=== PATIENT | male | born 1960 | race Caucasian/White ===

== ENCOUNTER 2023-11-18 10:39 | Day surgery (SDC) | payer OTHER, SELFPAY ==
[2023-11-18 11:43] VITALS: BMI 36.7
== END 2023-11-18 12:16 | disposition home or self-care (01) ==
LOC: CATH 10:39
PROVIDERS: ATTENDING PHYSICIAN Internal Medicine Cardiovascular Disease; FAMILY PHYSICIAN Family Medicine; OTHER PHYSICIAN Internal Medicine Cardiovascular Disease
DX: I48.91 Unspecified atrial fibrillation (principal); Z53.09 Procedure and treatment not carried out because of other contraindication; I10 Essential (primary) hypertension; Z86.73 Personal history of transient ischemic attack (TIA), and cerebral infarction without residual deficits; Z87.891 Personal history of nicotine dependence; Z79.01 Long term (current) use of anticoagulants; Z79.82 Long term (current) use of aspirin
CPT/HCPCS: 93005

== ENCOUNTER → 2024-02-10 08:16 | Outpatient (REF) | payer OTHER, SELFPAY | LOC: DHCBS HW 08:16 | PROVIDERS: ATTENDING PHYSICIAN Internal Medicine Cardiovascular Disease; FAMILY PHYSICIAN Family Medicine | DX: I63.50 Cerebral infarction due to unspecified occlusion or stenosis of unspecified cerebral artery (principal); I50.21 Acute systolic (congestive) heart failure; I48.3 Typical atrial flutter; I43 Cardiomyopathy in diseases classified elsewhere | CPT/HCPCS: 93306 ==

== ENCOUNTER 2024-10-14 13:12 | Inpatient (IN) | payer OTHER, SELFPAY ==
[2024-10-14 09:09] VITALS: BP 143/75
[2024-10-14 10:36] LABS: % Basophils 0.9 % (0-2); % Eosinophils 3.3 % (0-6); % Immature Granulocytes 0.3 % (0-0.5); % Lymphocytes 20.1 % (20.5-51.1); % Monocytes 10.9 % (1.7-9.3); % Neutrophils 64.5 % (42.2-75.2); Absolute Basophils 0.1 10^3/uL (0-0.2); Absolute Eosinophils 0.2 10^3/uL (0-0.7); Absolute Lymphocytes 1.3 10^3/uL (1.2-3.4); Absolute Monocytes 0.7 10^3/uL (0.1-0.6); Absolute Neutrophils 4.3 10^3/uL (1.4-6.5); Hematocrit 38.8 % (39.0-52.0); Hemoglobin 13.1 g/dL (13.0-18.0); Mean Corp Hgb Conc. 33.8 g/dL (33.0-37.0); Mean Corpuscular Hgb 33.6 pg (27.0-31.0); Mean Corpuscular Volume 99.5 fL (80.0-94.0); Mean Platelet Volume 9.9 fL (7.4-10.4); Nucleated Red Blood Cells % 0 % (-); Platelet Count 193 10^3/uL (130-400); Red Cell Dist. Width 11.9 % (11.5-14.5); White Blood Cell Count 6.6 10^3/uL (4.8-10.8)
[2024-10-14 10:47] LABS: ALT (SGPT) 26 U/L (0-50); AST (SGOT) 34 U/L (17-59); Albumin 3.5 g/dl (3.5-5.0); Alkaline Phosphatase 80 U/L (38-126); Blood Urea Nitrogen 12 mg/dl (9-20); Calcium 8.8 mg/dl (8.4-10.2); Carbon Dioxide 33 mmol/L (22-30); Chloride 98 mmol/L (98-107); Glucose 128 mg/dl (70-99); Potassium 4.1 mmol/L (3.5-5.1); Sodium 137 mmol/L (135-145); Total Bilirubin 0.8 mg/dl (0.2-1.3); eGFR > 60.00
[2024-10-14 11:29] VITALS: BP 138/75; BMI 35.4
[2024-10-14 11:52] LABS: Erythrocyte Sed Rate 41 mm/hour (0-20)
--- NOTE | 2024-10-14 12:46 | ED.GENMED ---
History of Present Illness
General
Chief Complaint: Skin Problem
Source: patient
Exam Limitations: none
Time Seen by Provider: 10/14/24 12:14
Nursing documentation reviewed up to this point in time: agreed with
History of Present Illness
History of Present Illness:
64-year-old male with a past medical history of hypertension, hyperlipidemia, atrial fibrillation on Xarelto, alcohol use who presents to the emergency department for evaluation of draining wound on the right elbow and redness and swelling of the
right arm. Patient reports that he has chronic 'cyst' on his right elbow for years. He says that around [place] time he noticed that it was starting to get red and over the past week has started to open up and drain. He says his arm is swollen
and he is having streaking redness up and down his arm as well as around the right elbow. He has had some subjective chills has not been checking his temperature at home. He does have some pain but he says relatively mild. Came to the ER for
evaluation. He denies any trauma or injury or any other complaints.
Past History
Past History
ED Past Medical History: Arrthythmia (A. fib), CVA (left basal ganglia stroke February 2021) and HTN
ED Past Surgical History: None
Social History
Tobacco: Smoker
Alcohol: None
Drug: None
Personal:
Living: with family
Employment: Employed
Family History
Family History: Other (reviewed and noncontributory)
Review of Systems
Review of Systems
All Other Systems: ROS reviewed and negative except as documented in HPI and ROS
Constitutional: Reports fever and chills
Respiratory: Denies trouble breathing
Cardiac: Denies chest pain
ABD/GI: Denies abdominal pain or vomiting
: Denies flank pain
Musculoskeletal: Reports joint pain (Redness, swelling, draining wound on the right elbow)
Skin: Reports other (Wound on the right elbow)
Neurological: Denies headache
Phy Exam
Physical Exam
Physical Exam:
General: Awake, alert, oriented x3; no acute distress
Head: Normocephalic, atraumatic
Eyes: Conjunctiva normal
Throat: Airway intact, handling secretions
Neck: Trachea midline, supple without meningismus
Lungs: Clear to auscultation bilaterally, no wheezing, rales, rhonchi
Heart: Regular rate and rhythm, no murmurs, gallops, or rubs
Abd: Soft, non distended, nontender
Neuro: No gross deficits
Extremities: Patient has a firm nodule on the right elbow and olecranon region with overlying approximately 3 cm diameter wound with purulent drainage; there is no fluctuance in the area and I was not able to express pus with palpation or bedside
needlestick but rather the wound itself has some purulence overlying; he has erythema streaking proximally up the upper arm as well as some streaking erythema distal to the elbow; he has no redness in the antecubital fossa on the right and he is
able to range his elbow fully with minimal pain; there is no large elbow effusion; he does have some edema in the arm on the upper arm down to the knuckles; he is a good strong distal radial pulse in the right upper extremity
Scores
Heart Failure Risk
Heart Failure Risk Score: Not Applicable
Heart Score for Chest Pain Patients
STEMI patient?: Not applicable
Withdrawal Assessment of Alcohol
Withdrawal Assessment Completed?: Not applicable
Course
Orders/Labs/Results
Orders:
Orders
10/14/24 10:15
CRP [C-Reactive Protein] Urgent
Complete Blood Count/With Diff Urgent
Comprehensive Metabolic Panel Urgent
Erythrocyte Sed Rate Urgent
10/14/24 12:18
CR Elbow - Right Min 3 Views Urgent
Comment:
Reason For Exam: wound/infection
10/14/24 12:33
Blood Culture Urgent
[facility] Source: Blood/Venous
Specimen Description:
10/14/24 12:40
Piperacillin/Tazo 3.375 Gram [Zosyn] 3.375 gram in 50 ml IV NOW
Vancomycin [Vancocin] 2,000 mg 0.9% Sodium Chloride 500 ml [Nss] 500 ml IV NOW
10/14/24 12:42
Wound Culture [Wound/Abscess/Other Culture] Urgent
[facility]LIN Source: Elbow
Specimen Description: Right
10/14/24 12:45
Blood Culture Urgent
[facility] Source: Blood/Venous
Specimen Description:
Abnormal Lab Results
10/14/24
10:15
RBC 3.90 L 10^6/uL
(4.70-6.10)
Hct 38.8 L %
(39.0-52.0)
MCV 99.5 H fL
(80.0-94.0)
MCH 33.6 H pg
(27.0-31.0)
Absolute Monos (auto) 0.7 H 10^3/uL
(0.1-0.6)
Lymphocytes % 20.1 L %
(20.5-51.1)
Monocytes % 10.9 H %
(1.7-9.3)
ESR 41 H mm/hour
(0-20)
Carbon Dioxide 33 H mmol/L
(22-30)
Glucose 128 H mg/dl
(70-99)
C-Reactive Protein 61.40 H mg/L
(0.0-10.00)
10/14/24 10:15
10/14/24 10:15
Vital Signs
Initial and Last Documented VS:
Initial Vital Signs
Temp Pulse Resp BP Pulse Ox
36.4 C 63 16 143/75 99
10/14/24 09:09 10/14/24 09:09 10/14/24 09:09 10/14/24 09:09 10/14/24 09:09
Last Documented Vital Signs
Temp Pulse Resp BP Pulse Ox
36.4 C 54 16 138/75 97
10/14/24 09:09 10/14/24 11:29 10/14/24 12:03 10/14/24 11:29 10/14/24 11:28
MDM/Problems Addressed
Differential Diagnosis Includes:
Wound infection, abscess, osteomyelitis, gout
MDM/Problems Addressed:
64-year-old male presents for evaluation of redness, swelling, drainage from wound on the right elbow as described above. Signs consistent with cellulitis and wound infection. At this point I have low suspicion that he has a septic arthritis with
good range of motion and minimal pain in the joint but rather an overlying superficial infection. It is rather extensive infection and wound is purulent. Labs were sent off including a CBC and a CMP which showed no clinically significant
abnormalities. His inflammatory markers were elevated. Will send off blood cultures as well as wound culture. Will cover with antibiotics. Check x-ray of the elbow. Will admit for continued management of severe cellulitis and wound infection.
Case discussed with hospitalist.
*Radiology
Radiology exam reviewed: preliminary read by ED provider and radiology read reviewed
*Pulse Oximetry
Patient hypoxic: no
*Critical Care Note
Total Time (30-74mins, 75-104mins- exclusive of procedures): Not Applicable
Data Reviewed
Source: patient and records
Patient Management
Discussion with other providers: Hospitalist (Discussed with hospitalist)
Escalation/DeEscalation of care consider admission/obs:
Admission indicated
ED Attending Note
-
Portions of this chart may have been created with voice recognition software.� Occasional wrong word or��sound alike� substitutions may have occurred due to the inherent limitations of voice recognition software.
Discharge Plan
Departure
Patient Disposition: Admit
Date of Disposition: 10/14/24
Time of Disposition: 12:41
Admit to doctor: Theo
Presentation/result/management discussed w/ accepting MD/DO: Hospitalist
Discharge Problem:
Open wound of right elbow, Cellulitis
Prescriptions:
No Action
carvedilol [Coreg] 25 MG tablet
25 mg PO BID 30 Days Qty: 60 0RF
amlodipine 5 mg tablet
5 mg PO DAILY Qty: 90 0RF
atorvastatin 40 MG tablet
40 mg PO DAILY
Xarelto 20 MG tablet
20 mg PO DAILY
Referrals:
NONE,* [Family Provider] -
Interventions
Interventions:
*Risk Screen - Suicide Last Done: 10/14/24 09:12
*General Assessment Last Done: 10/14/24 11:29
*Neglect/Abuse Screening Last Done: 10/14/24 09:12
ED- Fall Risk Assessment Last Done: 10/14/24 11:29
*ED COVID-19 Vaccine History Last Done: 10/14/24 11:29
ED-Skin Assessment Last Done: 10/14/24 11:29
Discharge Date and Time
Print Language: SLOVENIAN
[2024-10-14] MEDS: ZOSYN 50 IV ×2 (12:52→17:03)
--- NOTE | 2024-10-14 13:00 | HPS.HSE ---
Addendum entered and electronically signed by Frank Venegas MD 10/14/24 13:05:
Holding Xarelto in case debridement needed.
Original Note:
Family Physician
-
Family Physician: * NONE
Chief Complaint
-
right elbow wound
History of Present Illness
64-year-old male past medical history of atrial flutter status post ablation on Xarelto, hypertension, obesity, CVA, presenting with right elbow wound with discharge over the past few days. He has some discomfort when he bends his elbow but not
very painful. He had some chills but denies fever. 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 He has had a bump on his right elbow for over 20 years prior to that.
He smokes half a pack of cigarettes per day. Drinks a few beers every few days.
Medical History
Past Medical History
Past Medical History: Reports Other (atrial flutter status post ablation on Xarelto, hypertension, obesity, CVA, )
Past Surgical History: Reports None
Social History
Tobacco: Smoker
Alcohol: Occasional
Drug: None
Family History
Family History: Not pertinent
Allergies / Home Medications
Allergies reflects when Allergies were last updated in [facility].
Home Medications with original date entered in [facility]
Allergy/Medication List:
Allergies
Allergy/AdvReac Type Severity Reaction Status Date / Time
lisinopril Allergy Tongue Verified 11/18/23 11:44
Swelling
Home Medications
carvedilol 25 mg tablet (Coreg) 25 mg PO BID 30 days ##60 02/24/21
amlodipine 5 mg tablet 5 mg PO DAILY #90 tabs 10/15/23
atorvastatin 40 mg tablet 40 mg PO DAILY 11/18/23
rivaroxaban 20 mg tablet (Xarelto) 20 mg PO DAILY 11/18/23
Review of Systems
-
History Source: Patient
A 12 point ROS was completed and negative except as noted: Yes
Constitutional: Reports No Symptoms
EENT: Reports No Symptoms
Respiratory: Reports No Symptoms
Cardiac: Reports No Symptoms
Abdomen/GI: Reports No Symptoms
: Reports No Symptoms
Musculoskeletal: Reports No Symptoms
Skin: Reports See HPI and Other
Neurological: Reports No Symptoms
Endocrine: Reports No Symptoms
Hematologic/Lymphatic: Reports No Symptoms
Psych: Reports No Symptoms
Physical Exam
Vital Signs
Vital Signs
Temp Pulse Resp BP Pulse Ox
97.5 F 54 16 138/75 97
10/14/24 09:09 10/14/24 11:29 10/14/24 12:03 10/14/24 11:29 10/14/24 11:28
Physical Exam
General: Well Developed, Well Nourished and No Apparent Distress
HEENT: NormoCephalic, Moist mucous membranes and Atraumatic
Respiratory: Clear
Cardiac: S1/S2 and Regular Rhythm; No Murmur or Rub
GI: Soft, Non Tender, Non Distended and Normal Bowel Sounds; No Organomegaly
Rectal: Deferred by Provider
Musculoskeletal: No Clubbing, No Cyanosis and No Edema
Skin: Other (On examination there is a firm nodule in the right cranial region with approximately 3 cm wound with purulent drainage no fluctuance and unable to be expressed with erythema streaking proximally left upper arm); No Rash
Neuro: Nonfocal/grossly intact
Laboratory Results
-
10/14/24 10:15
10/14/24 10:15
Laboratory Results
Total Bilirubin 0.8 mg/dl (0.2-1.3) 10/14/24 10:15
AST 34 U/L (17-59) 10/14/24 10:15
ALT 26 U/L (0-50) 10/14/24 10:15
Alkaline Phosphatase 80 U/L (38-126) 10/14/24 10:15
Data Reviewed
-
Lab Data: Labs Reviewed by me
Old Records: Reviewed
Impression/Plan
-
IMPRESSION:
PLAN:
# Right elbow infected open wound with surrounding cellulitis
-On examination there is a firm nodule in the right cranial region with approximately 3 cm wound with purulent drainage no fluctuance and unable to be expressed with erythema streaking proximally left upper arm
-He has good range of motion
-Wound culture, blood cultures sent
-Elbow x-ray pending
-Vancomycin/Zosyn
-Wound care consulted
Atrial flutter status post ablation
-Continue Xarelto
-Continue Coreg
Essential hypertension
-Continue amlodipine
History of CVA
-Continue statin
Obesity
Smoker
Full code
DVT prophylaxis�Xarelto
Regular diet
[2024-10-14] MEDS: VANCOCIN 540 MG IV (13:49)
--- NOTE | 2024-10-14 15:10 | PHA.VAN.IN ---
Assessment
- Assessment
Renal Function: Appears similar to baseline
Renal Function may be Overestimated due to: bmi=35.4
Concomitant Antimicrobials: zosyn
AUC Dosing Plan
- Dosing Variables
Dosing Weight (kg): 115
Dosing CrCl (ml/min): 100
Vd coefficient (L/kg): 0.6
- Empiric Dosing
Initial / Loading Dose: 2000mg
Maintenance Regimen: 1500mg q12h
Estimated AUC (mcg*h/mL): 530
Estimated Peak (mcg*h/mL): 33.5
Estimated Trough (mcg/ml): 13.4
Estimated Half Life (H): 7.9
- Monitoring
No levels ordered at this time: consider at steady state
Pharmacokinetics Vancomycin I
- -
Patient Age: 64
Patient Sex: Male
Vancomycin Day #: 1
Indication: Skin And Soft Tissue
Requesting Provider: Dr. Venegas
Height / Weight:
Height 5 ft 11 in
Actual Weight 115 kg
IBW in k.3
- Vital Signs / Lab Results
Temp Pulse Resp BP Pulse Ox
97.5 F 54 16 138/75 97
10/14/24 09:09 10/14/24 11:29 10/14/24 14:00 10/14/24 11:29 10/14/24 11:28
Lab Results - Hematology
10/14/24
10:15
WBC 6.6
Lab Results - Chemistry
10/14/24
10:15
BUN 12
Creatinine 0.7
Albumin 3.5
[2024-10-14 15:30] VITALS: BP 171/110
[2024-10-14 16:13] VITALS: BMI 34.9
[2024-10-14 16:36] VITALS: BMI 34.9
[2024-10-14] MEDS: COREG 25 MG PO (20:27)
[2024-10-14] MEDS: TYLENOL 650 MG PO (20:29)
[2024-10-14 23:05] VITALS: BP 154/88
[2024-10-15] MEDS: ZOSYN 50 IV ×5 (00:02→23:09)
[2024-10-15 06:01] LABS: % Basophils 1.1 % (0-2); % Eosinophils 3.7 % (0-6); % Immature Granulocytes 0.2 % (0-0.5); % Lymphocytes 25.8 % (20.5-51.1); % Monocytes 12.1 % (1.7-9.3); % Neutrophils 57.1 % (42.2-75.2); Absolute Basophils 0.1 10^3/uL (0-0.2); Absolute Eosinophils 0.2 10^3/uL (0-0.7); Absolute Lymphocytes 1.4 10^3/uL (1.2-3.4); Absolute Monocytes 0.7 10^3/uL (0.1-0.6); Absolute Neutrophils 3.1 10^3/uL (1.4-6.5); Hemoglobin 12.7 g/dL (13.0-18.0); Mean Corp Hgb Conc. 34.3 g/dL (33.0-37.0); Mean Corpuscular Hgb 33.9 pg (27.0-31.0); Mean Corpuscular Volume 98.7 fL (80.0-94.0); Mean Platelet Volume 9.8 fL (7.4-10.4); Nucleated Red Blood Cells % 0 % (-); Platelet Count 186 10^3/uL (130-400); Red Blood Cell Count 3.75 10^6/uL (4.70-6.10); Red Cell Dist. Width 11.9 % (11.5-14.5); White Blood Cell Count 5.4 10^3/uL (4.8-10.8)
[2024-10-15 06:22] LABS: ALT (SGPT) 26 U/L (0-50); AST (SGOT) 31 U/L (17-59); Albumin 3.3 g/dl (3.5-5.0); Alkaline Phosphatase 89 U/L (38-126); Blood Urea Nitrogen 9 mg/dl (9-20); Calcium 8.7 mg/dl (8.4-10.2); Carbon Dioxide 29 mmol/L (22-30); Chloride 99 mmol/L (98-107); Estimated Creatinine Clearance > 125 ml/min; Glucose 88 mg/dl (70-99); Sodium 137 mmol/L (135-145); Total Bilirubin 0.8 mg/dl (0.2-1.3); Total Protein 6.8 g/dl (6.3-8.2); eGFR > 60.00
[2024-10-15] MEDS: VANCOCIN 530 MG IV ×2 (06:30→18:51)
[2024-10-15 07:00] VITALS: BP 158/83
[2024-10-15] MEDS: LIPITOR 40 MG PO (08:22)
[2024-10-15] MEDS: COREG 25 MG PO ×2 (08:22→20:17)
[2024-10-15] MEDS: NORVASC 5 MG PO (08:22)
[2024-10-15] MEDS: TYLENOL 650 MG PO (08:23)
--- NOTE | 2024-10-15 08:44 | PHA.VAN.FU ---
Vancomycin Assessment / Plan
- Assessment
Renal Function: Stable
WBC's are: WNL
In the past 24 hrs, patient has been: Afebrile
Concomitant Antimicrobials: ZOSYN
- Dosing Plan
Continue: 1500MG Q12H
- Monitoring Plan
Peak Level: 10/16 @2100
Trough Level: 10/17 @0530
- Follow Up
Pharmacy will continue to follow.
Vancomycin Follow UP
- -
Patient Age: 64
Patient Sex: Male
Vancomycin Day #: 2
Indication: Skin And Soft Tissue
Requesting Provider: Dr. Venegas
Height / Weight:
Height 5 ft 11 in
Actual Weight 113.398 kg
IBW in k.3
- Vital Signs / Lab Results
Temp Pulse Resp BP Pulse Ox
98.1 F 67 16 154/88 96
10/14/24 23:05 10/14/24 23:05 10/14/24 23:05 10/14/24 23:05 10/14/24 23:05
Lab Results - Hematology
10/14/24 10/15/24
10:15 04:17
WBC 6.6 5.4
Lab Results - Chemistry
10/14/24 10/15/24
10:15 04:17
BUN 12 9
Creatinine 0.7 0.7
Estimated Creat Clear > 125
Albumin 3.5 3.3 L
--- NOTE | 2024-10-15 13:25 | W.PN.HOSP.TC ---
Today's Communication/Plan
-
see bold
Assessment / Plan
Assessment / Plan
Gen: NAD, AAOx3.
Eyes: EOMI, PERRLA, no scleral icterus.
Neck: supple.
CV: RRR, +S1/S2, no m/r/g.
Resp: CTAB, no rales, wheezes, or rhonchi.
Abd: +BS, soft, NT, ND
Skin: No rashes. C/D/I dressing R elbow
Neuro: CN 2-12 intact, non-focal.
Psych: Normal mood and affect.
10/14/24 12:38 Blood/Venous Blood Culture - Preliminary
No Growth in 24 hours- Final report to follow
10/14/24 12:33 Blood/Venous Blood Culture - Preliminary
No Growth in 24 hours- Final report to follow
R elbow Xray: No acute osseous abnormality. There is an olecranon spur with associated olecranon bursitis. There is mild soft tissue swelling along the posterior soft tissues adjacent to the distal humerus.
Right elbow infected open wound with surrounding cellulitis:
-cont IV Vanco/Zosyn
-follow BCxs/WCx
-c/s ortho
Atrial flutter s/p ablation:
-Xarelto on hold for possible I&D
-Continue Coreg
Essential hypertension
-Continue amlodipine
History of CVA
-Continue statin
-Xarelto on hold for possible I&D
Obesity due to excess calories
Tobacco abuse disorder
FULL/Lovenox
Anticipated Discharge: 24 - 48 hours
Subjective/Interval History
-
Date of Service: October 15, 2024
No new complaints.
Objective Data
-
Labs:
Laboratory Results
10/15/24
04:17
WBC 5.4
Hgb 12.7 L
Hct 37.0 L
Plt Count 186
Sodium 137
Potassium 4.0
Chloride 99
Carbon Dioxide 29
BUN 9
Creatinine 0.7
Glucose 88
Calcium 8.7
Total Bilirubin 0.8
AST 31
ALT 26
Alkaline Phosphatase 89
Vital Signs:
Vital Signs
Temp Pulse Resp BP Pulse Ox
98.3 F 62 20 158/83 96
10/15/24 07:00 10/15/24 07:00 10/15/24 07:00 10/15/24 07:00 10/15/24 07:00
I&O
10/14/24 10/15/24 10/16/24
06:59 06:59 06:59
Intake Total 480 / 480
Balance 480 / 480
[2024-10-15 15:00] VITALS: BP 173/100
--- NOTE | 2024-10-15 16:07 | W.PN.UPDATE ---
Update Note
Progress Note Update
Full orthopedic consult dictated:
Dx: Right elbow septic olecranon bursitis
Plan: Patient unfortunately is experiencing septic olecranon bursitis right elbow which is going to require irrigation and debridement with possible wound VAC placement tomorrow. Continue with IV antibiotics and local wound care. N.p.o. after
midnight.
[2024-10-15] MEDS: LOVENOX 40 MG SC (17:49)
[2024-10-15 23:02] VITALS: BP 145/77
[2024-10-16] VITALS (8 sets, daily range): BP systolic 130–168; BP diastolic 71–87
--- NOTE | 2024-10-16 05:42 | PTCARENOTE ---
Pt washed at sink, linens and gown changed. 1st set of CHG cloths used.
[2024-10-16] MEDS: ZOSYN 50 IV (05:43)
[2024-10-16] MEDS: VANCOCIN 530 MG IV (06:30)
[2024-10-16] MEDS: COREG PO (08:40)
[2024-10-16 09:33] LABS: % Basophils 0.7 % (0-2); % Immature Granulocytes 0.3 % (0-0.5); % Monocytes 10.2 % (1.7-9.3); % Neutrophils 62.8 % (42.2-75.2); Absolute Eosinophils 0.2 10^3/uL (0-0.7); Absolute Lymphocytes 1.4 10^3/uL (1.2-3.4); Absolute Monocytes 0.6 10^3/uL (0.1-0.6); Absolute Neutrophils 3.8 10^3/uL (1.4-6.5); Hematocrit 37.2 % (39.0-52.0); Hemoglobin 12.9 g/dL (13.0-18.0); Mean Corp Hgb Conc. 34.7 g/dL (33.0-37.0); Mean Corpuscular Hgb 34.1 pg (27.0-31.0); Mean Corpuscular Volume 98.4 fL (80.0-94.0); Mean Platelet Volume 9.3 fL (7.4-10.4); Nucleated Red Blood Cells % 0 % (-); Platelet Count 186 10^3/uL (130-400); Red Blood Cell Count 3.78 10^6/uL (4.70-6.10); Red Cell Dist. Width 11.8 % (11.5-14.5); White Blood Cell Count 6.1 10^3/uL (4.8-10.8)
--- NOTE | 2024-10-16 09:51 | W.PN.UPDATE ---
Update Note
Progress Note Update
Patient resting comfortably this morning. Right elbow is dressed. Plan for the OR as Dr. Douglas's availability permits a bit later today for an I&D of the right elbow with possible wound VAC placement. Patient to remain NPO.
[2024-10-16 10:16] LABS: Blood Urea Nitrogen 12 mg/dl (9-20); Calcium 8.7 mg/dl (8.4-10.2); Carbon Dioxide 29 mmol/L (22-30); Chloride 100 mmol/L (98-107); Estimated Creatinine Clearance 123 ml/min; Glucose 101 mg/dl (70-99); Potassium 4.1 mmol/L (3.5-5.1); Sodium 136 mmol/L (135-145); eGFR > 60.00
--- NOTE | 2024-10-16 10:46 | CON.ID ---
Consultation
-
Date/Time Consultation Requested: October 16, 2024 0849
Date/Time Consultation Performed: October 16, 2024 1050
Requesting Provider: Dr. Jarrett Samuel
Performing Provider: Dr. Isi Maldonado
Reason for Consultation: olecranon septic bursitis
Chief Complaint / Past History
Chief Complaint
Right elbow draining wound
History of Present Illness
64-year-old male with history of CVA, hypertension, a flutter who presented to the hospital on October 04 due to right elbow wound. Patient reports he always has a lump the size of a golf ball over his right elbow for many years. He also has a
similar lump on his left pinky finger for many years. History of gout of the ankle 10 years ago. Last week he noted that the lump over the right elbow opened up with white chalky discharge followed by bloody drainage. The elbow became swollen red
and painful. No fevers or chills. In the ER drainage was swabbed and sent for culture. He was started on vancomycin and Zosyn. He reports he may have banged his elbow but he is not sure. 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 Ortho is planning to take
him to the OR later today for debridement.
Past History
Additional Past Medical History:
Hypertension
CVA
A flutter status post ablation
Allergy History:
lisinopril Allergy (Verified 11/18/23 11:44)
Tongue Swelling
Medications Reviewed: Yes
Current Antibiotics:
Zosyn d3
Vancomycin d3
Social History
Tobacco: Smoker (1/2 pack daily)
Alcohol: Daily (beers)
Family History
Family History: Not Pertinent
Review of Systems
Review of Systems
General: Negative Fever, Chills or Change in Appetite
HEENT: Negative Sinus Problems or Headache
Cardiovascular: Negative Chest Pain or Dyspnea
Respiratory: Negative Dyspnea or Cough
Gasteroenterology: Negative Nausea, Vomiting or Diarrhea
Genital / Urological: Negative Dysuria
Endocrine: Negative Weakness or Fatigue
Skin / Hair / Nails: Negative Rash
Neurological: Negative Dizziness
All systems: All other systems were reviewed and were negative
Vital Signs
Temp Pulse Resp BP Pulse Ox
98.3 F 58 19 151/78 95
10/16/24 07:00 10/16/24 07:00 10/16/24 07:00 10/16/24 07:00 10/16/24 07:00
Physical Exam
Physical Exam
Constitutional: No Acute Distress, Comfortable and Obese
Eyes: No Conjunctival Hemorrhage and Sclera Anicteric
Cardiovascular: Regular Rate and S1/S2
Pulmonary: Clear
Gastrointestinal: Soft, Non Tender, Non Distended and Normal Bowel Sounds
Genito-Urinary: Negative CVA Tenderness
Extremities: Negative Edema
Musculoskeletal: Other (Right olecranon: wound + white substance and light thick yellow drainage, + edema, erythema. ROM intact. Left 5th finger PIP gouty induration)
Neurological: AO x 3
Lab / Diagnostic Study Results
10/16/24 09:05
10/16/24 09:05
Abs Immat Gran (auto) 0.0 10^3/uL (0-0.05) 10/16/24 09:05
Absolute Neuts (auto) 3.8 10^3/uL (1.4-6.5) 10/16/24 09:05
Absolute Lymphs (auto) 1.4 10^3/uL (1.2-3.4) 10/16/24 09:05
Absolute Monos (auto) 0.6 10^3/uL (0.1-0.6) 10/16/24 09:05
Absolute Basos (auto) 0.0 10^3/uL (0-0.2) 10/16/24 09:05
Immature Gran % 0.3 % (0-0.5) 10/16/24 09:05
Neutrophils % 62.8 % (42.2-75.2) 10/16/24 09:05
Lymphocytes % 23.0 % (20.5-51.1) 10/16/24 09:05
Monocytes % 10.2 % (1.7-9.3) H 10/16/24 09:05
Eosinophils % 3.0 % (0-6) 10/16/24 09:05
Basophils % 0.7 % (0-2) 10/16/24 09:05
ESR 41 mm/hour (0-20) H 10/14/24 10:15
C-Reactive Protein 61.40 mg/L (0.0-10.00) H 10/14/24 10:15
Microbiology Results
Micro:
10/14/24 20:47 Wound Culture - Pending
Elbow - Right Gram Stain - Preliminary
10/14/24 12:38 Blood Culture - Preliminary
Blood/Venous No Growth in 24 hours- Final report to follow
10/14/24 12:33 Blood Culture - Preliminary
Blood/Venous No Growth in 24 hours- Final report to follow
10/14/24 Elbow XRAY: No acute osseous abnormality. There is an olecranon spur with associated olecranon bursitis. There is mild soft tissue swelling along the posterior soft tissues adjacent to the distal humerus.
Assessment / Plan
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
# Suspect superimposed right olecranon and bursa infection
- Check serum uric acid
- To OR today for I+D. Please send crystals and cultures.
- Narrow Vanco/Zosyn to cefazolinb for now.
[2024-10-16 11:34] LABS: Uric Acid 3.4 mg/dl (3.5-8.5)
--- NOTE | 2024-10-16 13:10 | WOUNDNOTE ---
WO RN note: Patient admitted with infected R elbow, septic bursitis. Orthopedic surgeon managing. Plan is OR I+D today.
See H&P for complete history.
PMH: a flutter (Xarelto), HTN, obesity, CVA, smoker, drinks a few beers every few days.
Wound Location and type/assessment: Patient admitted with: full thickness R elbow wound with white tissue (gout?) and surround erythema. Moderate nichols drainage.
Appetite: NPO for procedure.
Pressure redistribution devices in place: [employer] Accumax. Patient mobile.
Plan: R elbow dressing changed. RUE elevated on pillow.
Orthopedic surgeon managing wound. ID following. Will follow peripherally as needed.
Note to case management requested for discharge: VN if needed.
Patient to follow up with orthopedic surgeon.
--- NOTE | 2024-10-16 13:21 | W.PN.HOSP.TC ---
Today's Communication/Plan
-
OR today
IV abx narrowed to cefazolin
Xarelto held-pt understands need to hold DOAC in setting of surgery
post op orders per ortho
Assessment / Plan
Assessment / Plan
Gen: NAD, AAOx3.
Eyes: EOMI, PERRLA, no scleral icterus.
Neck: supple.
CV: RRR, +S1/S2, no m/r/g.
Resp: CTAB, no rales, wheezes, or rhonchi.
Abd: +BS, soft, NT, ND
Skin: No rashes. C/D/I dressing R elbow
Neuro: CN 2-12 intact, non-focal.
Psych: Normal mood and affect.
MSR-R hand swelling. R forearm swelling.
10/14/24 12:38 Blood/Venous Blood Culture - Preliminary
No Growth in 24 hours- Final report to follow
10/14/24 12:33 Blood/Venous Blood Culture - Preliminary
No Growth in 24 hours- Final report to follow
R elbow Xray: No acute osseous abnormality. There is an olecranon spur with associated olecranon bursitis. There is mild soft tissue swelling along the posterior soft tissues adjacent to the distal humerus.
Right elbow infected open wound with surrounding cellulitis:
-s/p IV Vanco/Zosyn and now on cefazolin
-follow BCxs. Await Cultures from OR.
-Plan for OR today
-ID c/s
Atrial flutter s/p ablation:
-Xarelto on hold for possible I&D
-Continue Coreg
Essential hypertension
-Continue amlodipine
History of CVA
-Continue statin
-Xarelto on hold for possible I&D
Obesity due to excess calories
Tobacco abuse disorder
FULL/Lovenox
Anticipated Discharge: > 48 hours
Subjective/Interval History
-
Date of Service: October 16, 2024
resting in bed
states of R hand swelling
Objective Data
-
Labs:
Laboratory Results
10/16/24
09:05
WBC 6.1
Hgb 12.9 L
Hct 37.2 L
Plt Count 186
Sodium 136
Potassium 4.1
Chloride 100
Carbon Dioxide 29
BUN 12
Creatinine 0.8
Glucose 101 H
Calcium 8.7
Vital Signs:
Vital Signs
Temp Pulse Resp BP Pulse Ox
98.3 F 58 19 151/78 95
10/16/24 07:00 10/16/24 07:00 10/16/24 07:00 10/16/24 07:00 10/16/24 07:00
I&O
10/15/24 10/16/24 10/17/24
06:59 06:59 06:59
Intake Total 480 / 480 50 / 50
Balance 480 / 480 50 / 50
Data Reviewed
-
Total Time Spent with Patient (in minutes): 55
--- NOTE | 2024-10-16 16:06 | CM ---
account services manager reviewed patient's chart and met with patient and patient lives with his brother in law in a multilevel home, patient is independent with adl's and ambulation no dme, no dme.
PCP: [facility]
Pharmacy: [facility]
Plan; Home when stable, will wait for possible wound vac placement.
[2024-10-16] MEDS: ANCEF 10 IV ×2 (16:08→23:14)
[2024-10-16] MEDS: FLUSH (NSS) 1 FLUSH IV (16:09)
[2024-10-16] MEDS: LIPITOR PO (19:10)
[2024-10-16] MEDS: NORVASC PO (19:10)
[2024-10-16] MEDS: LOVENOX SC (19:10)
[2024-10-16] MEDS: COREG 25 MG PO (21:08)
--- NOTE | 2024-10-16 21:15 | PTCARENOTE ---
Pt received from PACU in bed. AAOx3, pleasant, denies pain. Full physical assessment completed (refer to worklist). NV check WNL. RUE immobilized in sling. Tolerated dinner. OOB to BR to void. LAC leaking, removed. Offers no complaints at
present. Call demond w/in reach.
[2024-10-17 03:04] VITALS: BP 122/71
[2024-10-17] MEDS: ANCEF 10 IV (05:44)
--- NOTE | 2024-10-17 06:37 | W.PN.ORTHO ---
Today's Communication / Plan
-
64-year-old male POD #1 I&D Right Olecranon Bursa 10/16/[address] Douglas.
- WBAT RUE. Sling intact.
- Encourage ROM of wrist and hand. Ice and elevation for edema control.
- Intra-operative cultures pending. Continue to follow.
- Currently on Cefazolin per ID.
- Pain control per primary team.
- Orthopedic surgery will continue to follow.
Assessment
.
Distal Motor Intact: Yes
Dressing:
Clean, dry and intact. Sling in place.
Digital ROM intact. Elbow ROM Deferred.
Capillary refill is less than 2 seconds. NVI distally.
Assessment:
POD #1 I&D Right Olecranon Bursa.
Plan
.
Surgery / Date: I&D Right Olecranon Bursa 10/16/2024 St[facility]
DVT Prophylaxis: Lovenox (Per Primary Team. )
Activity:
Out of bed.
PT/OT
Discharge Information:
Appreciate CM.
Subjective
.
.:
Patient resting comfortably in bed. Denies any new complaints or concerns. Denies any left elbow pain at present. Denies any paresthesias.
Vital Signs and Labs
.
Vital Signs and Labs:
Temp Pulse Resp BP Pulse Ox
97.7 F 56 16 122/71 96
10/17/24 03:04 10/17/24 03:04 10/17/24 03:04 10/17/24 03:04 10/17/24 03:04
[2024-10-17 07:43] VITALS: BP 139/73
[2024-10-17] MEDS: LIPITOR PO ×2 (08:53→09:46)
[2024-10-17] MEDS: NORVASC 5 MG PO (08:53)
[2024-10-17] MEDS: COREG 25 MG PO ×2 (08:54→21:23)
[2024-10-17 10:50] LABS: % Basophils 0.1 % (0-2); % Immature Granulocytes 0.2 % (0-0.5); % Lymphocytes 10.3 % (20.5-51.1); % Monocytes 3.5 % (1.7-9.3); % Neutrophils 85.9 % (42.2-75.2); Absolute Lymphocytes 0.9 10^3/uL (1.2-3.4); Absolute Monocytes 0.3 10^3/uL (0.1-0.6); Absolute Neutrophils 7.4 10^3/uL (1.4-6.5); Hemoglobin 13.3 g/dL (13.0-18.0); Mean Corp Hgb Conc. 34.1 g/dL (33.0-37.0); Mean Corpuscular Hgb 33.5 pg (27.0-31.0); Mean Corpuscular Volume 98.2 fL (80.0-94.0); Mean Platelet Volume 9.7 fL (7.4-10.4); Nucleated Red Blood Cells % 0 % (-); Platelet Count 225 10^3/uL (130-400); Red Blood Cell Count 3.97 10^6/uL (4.70-6.10); Red Cell Dist. Width 11.8 % (11.5-14.5); White Blood Cell Count 8.6 10^3/uL (4.8-10.8)
[2024-10-17 10:56] LABS: Blood Urea Nitrogen 16 mg/dl (9-20); Calcium 8.7 mg/dl (8.4-10.2); Carbon Dioxide 30 mmol/L (22-30); Chloride 96 mmol/L (98-107); Estimated Creatinine Clearance 123 ml/min; Glucose 232 mg/dl (70-99); Potassium 4.4 mmol/L (3.5-5.1); Sodium 134 mmol/L (135-145); eGFR > 60.00
[2024-10-17 11:17] VITALS: BP 137/73
--- NOTE | 2024-10-17 11:24 | W.PN.ID1 ---
Date of Service
Date of Service: October 17, 2024
Today's Communication
Continue abx.
Assessment / Plan
# Right olecranon septic bursitis
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
- wound swab + Group A strep
- 10/16 s/p OR I+D. Cx pending
- Change cefazolin to ceftriaxone.
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
Hypertension
CVA
A-flutter status post ablation
Remote hx of gout
Chief Complaint
-: Other (septic bursitis)
Subjective / Review of Systems
No significant post-op pain
Vital Signs / Physical Exam
Vital Signs
Vital Signs
Temp Pulse Resp BP Pulse Ox
97.7 F 56 18 137/73 95
10/17/24 11:17 10/17/24 11:17 10/17/24 11:17 10/17/24 11:17 10/17/24 11:17
Physical Exam
Constitutional: No Acute Distress and Comfortable
Cardiovascular: Regular Rate and S1/S2
Pulmonary: Clear
Gastrointestinal: Non Tender and Non Distended
Wound: Other (right elbow dressing in place)
Neurological: AO x 3
Objective Data
Lab Data
Lab Results
10/17/24 09:34
10/17/24 09:34
ESR 41 mm/hour (0-20) H 10/14/24 10:15
Estimated Creat Clear 123 ml/min 10/17/24 09:34
Total Bilirubin 0.8 mg/dl (0.2-1.3) 10/15/24 04:17
AST 31 U/L (17-59) 10/15/24 04:17
ALT 26 U/L (0-50) 10/15/24 04:17
Alkaline Phosphatase 89 U/L (38-126) 10/15/24 04:17
C-Reactive Protein 61.40 mg/L (0.0-10.00) H 10/14/24 10:15
Most recent labs reviewed.
Micro Results:
10/16/24 19:12 Anaerobic Culture - Preliminary
Bursa Culture pending. Anaerobic cultures are examined after 3
days incubation. Additional information to follow.
10/16/24 19:12 Tissue Culture - Preliminary
Bursa No Growth After 18-24 Hours
Gram Stain - Preliminary
10/14/24 20:47 Wound Culture - Preliminary
Elbow - Right Streptococcus pyogenes
Gram Stain - Preliminary
10/14/24 12:38 Blood Culture - Preliminary
Blood/Venous No Growth in 48 hours- Final report to follow
10/14/24 12:33 Blood Culture - Preliminary
Blood/Venous No Growth in 48 hours- Final report to follow
10/14/24 Elbow XRAY: No acute osseous abnormality. There is an olecranon spur with associated olecranon bursitis. There is mild soft tissue swelling along the posterior soft tissues adjacent to the distal humerus.
[2024-10-17] MEDS: ROCEPHIN 2000 MG IV (12:17)
[2024-10-17] MEDS: STERILE WATER FOR INJECTION 20 ML IV (12:22)
--- NOTE | 2024-10-17 13:01 | W.PN.HOSP.TC ---
Today's Communication/Plan
-
await OR culture
restart xarelto
IV abx per ID
oob
Assessment / Plan
Assessment / Plan
Gen: NAD, AAOx3.
Eyes: EOMI, PERRLA, no scleral icterus.
Neck: supple.
CV: RRR, +S1/S2, no m/r/g.
Resp: CTAB, no rales, wheezes, or rhonchi.
Abd: +BS, soft, NT, ND
Skin: No rashes. C/D/I dressing R elbow
Neuro: CN 2-12 intact, non-focal.
Psych: Normal mood and affect.
MSR-R hand swelling. R forearm swelling.
10/14/24 12:38 Blood/Venous Blood Culture - Preliminary
No Growth in 24 hours- Final report to follow
10/14/24 12:33 Blood/Venous Blood Culture - Preliminary
No Growth in 24 hours- Final report to follow
R elbow Xray: No acute osseous abnormality. There is an olecranon spur with associated olecranon bursitis. There is mild soft tissue swelling along the posterior soft tissues adjacent to the distal humerus.
Right elbow infected open wound with surrounding cellulitis:
-s/p IV Vanco/Zosyn and now on cefazolin. Switched to rocephin now
-follow BCxs. Await Cultures from OR.
-s/p I&D Right Olecranon Bursa 10/16/[address] Douglas.
-Encourage range of motion of the wrist and hand. Ice and elevation which patient has been doing.
-ID following
Atrial flutter s/p ablation:
-Xarelto restarted. cleared by Dr. Douglas.
-Continue Coreg
Essential hypertension
-Continue amlodipine
History of CVA
-Continue statin
-Xarelto on hold for possible I&D
Obesity due to excess calories
Tobacco abuse disorder
FULL/xarelto
Anticipated Discharge: > 48 hours
Subjective/Interval History
-
Date of Service: October 17, 2024
states R hand swelling improved
remains in sling RUE
tolerating diet
having bm
Objective Data
-
Labs:
Laboratory Results
10/17/24
09:34
WBC 8.6
Hgb 13.3
Hct 39.0
Plt Count 225 D
Sodium 134 L
Potassium 4.4
Chloride 96 L
Carbon Dioxide 30
BUN 16
Creatinine 0.8
Glucose 232 H
Calcium 8.7
Vital Signs:
Vital Signs
Temp Pulse Resp BP Pulse Ox
97.7 F 56 18 137/73 95
10/17/24 11:17 10/17/24 11:17 10/17/24 11:17 10/17/24 11:17 10/17/24 11:17
I&O
10/16/24 10/17/24 10/18/24
06:59 06:59 06:59
Intake Total 50 / 50
Balance 50 / 50
Data Reviewed
-
Total Time Spent with Patient (in minutes): 55
--- NOTE | 2024-10-17 14:01 | CM ---
Patient is independent with adl's and ambulation, plan is to home, will need to follow for wound vac and ABX.
Plan; Home when stable, will need to follow for wound vac and ABX.
[2024-10-17] MEDS: XARELTO 20 MG PO (14:04)
[2024-10-17 15:29] VITALS: BP 133/69
[2024-10-17] MEDS: TYLENOL 650 MG PO (21:26)
[2024-10-17 23:18] VITALS: BP 144/83
[2024-10-18 05:20] LABS: % Basophils 0.4 % (0-2); % Eosinophils 0.4 % (0-6); % Immature Granulocytes 0.2 % (0-0.5); % Lymphocytes 19.7 % (20.5-51.1); % Monocytes 9.2 % (1.7-9.3); % Neutrophils 70.1 % (42.2-75.2); Absolute Lymphocytes 1.8 10^3/uL (1.2-3.4); Absolute Monocytes 0.8 10^3/uL (0.1-0.6); Absolute Neutrophils 6.4 10^3/uL (1.4-6.5); Hematocrit 37.3 % (39.0-52.0); Hemoglobin 12.6 g/dL (13.0-18.0); Mean Corp Hgb Conc. 33.8 g/dL (33.0-37.0); Mean Corpuscular Hgb 33.4 pg (27.0-31.0); Mean Corpuscular Volume 98.9 fL (80.0-94.0); Mean Platelet Volume 9.7 fL (7.4-10.4); Nucleated Red Blood Cells % 0 % (-); Platelet Count 206 10^3/uL (130-400); Red Blood Cell Count 3.77 10^6/uL (4.70-6.10); Red Cell Dist. Width 11.9 % (11.5-14.5); White Blood Cell Count 9.1 10^3/uL (4.8-10.8)
[2024-10-18 05:50] LABS: Blood Urea Nitrogen 15 mg/dl (9-20); Calcium 8.7 mg/dl (8.4-10.2); Carbon Dioxide 32 mmol/L (22-30); Chloride 98 mmol/L (98-107); Estimated Creatinine Clearance > 125 ml/min; Glucose 124 mg/dl (70-99); Potassium 4.1 mmol/L (3.5-5.1); Sodium 135 mmol/L (135-145); eGFR > 60.00
[2024-10-18 07:00] VITALS: BP 159/107
[2024-10-18] MEDS: LIPITOR 40 MG PO (07:52)
[2024-10-18] MEDS: NORVASC 5 MG PO (07:54)
[2024-10-18] MEDS: XARELTO 20 MG PO (07:54)
[2024-10-18] MEDS: COREG 25 MG PO ×2 (07:55→20:30)
--- NOTE | 2024-10-18 08:47 | W.PN.ORTHO ---
Today's Communication / Plan
-
64-year-old male POD #2 I&D Right Olecranon Bursa 10/16/[address] Douglas.
- WBAT RUE. Sling intact. Dressings C/D/I. Dressings to remain.
- Encourage ROM of wrist and hand. Ice and elevation for edema control.
- OR Cultures without growth after 48 hours. Continue to follow. Right elbow wound culture 10/14/2024 (+) Streptococcus Pyogenes - Group A. Currently on Ceftriaxone per ID.
- Pain control per primary team.
- Orthopedic surgery will continue to follow.
Assessment
.
Distal Motor Intact: Yes
Dressing:
Dressing/THELMA clean, dry and intact. Sling in place.
Digital ROM intact. Elbow ROM Deferred.
Capillary refill is less than 2 seconds. NVI distally.
Assessment:
POD #2 I&D Right Olecranon Bursa.
Plan
.
Surgery / Date: I&D Right Olecranon Bursa 10/16/2024 Stella
DVT Prophylaxis: Other (Per Primary Team. )
Activity:
Out of bed.
PT/OT.
Discharge Information:
Appreciate CM.
Subjective
.
.:
Patient eating breakfast. Denies any new complaints or concerns. Denies any left elbow pain at present. Denies any paresthesias.
Vital Signs and Labs
.
Vital Signs and Labs:
Lab Results
10/18/24 04:27
10/18/24 04:27
Temp Pulse Resp BP Pulse Ox
98.6 F 55 18 144/83 99
10/17/24 23:18 10/17/24 23:18 10/17/24 23:18 10/17/24 23:18 10/17/24 23:18
[2024-10-18] MEDS: ROCEPHIN 2000 MG IV (12:39)
[2024-10-18] MEDS: STERILE WATER FOR INJECTION 20 ML IV (12:39)
--- NOTE | 2024-10-18 13:51 | W.PN.HOSP.TC ---
Today's Communication/Plan
-
Await final OR culture data
Continue with IV ceftriaxone
ID recs
Monitor blood pressure
Assessment / Plan
Assessment / Plan
Gen: NAD, AAOx3.
Eyes: EOMI, PERRLA, no scleral icterus.
Neck: supple.
CV: RRR, +S1/S2, no m/r/g.
Resp: CTAB, no rales, wheezes, or rhonchi.
Abd: +BS, soft, NT, ND
Skin: No rashes. C/D/I dressing R elbow
Neuro: CN 2-12 intact, non-focal.
Psych: Normal mood and affect.
MSR-R hand swelling. R forearm swelling.
10/14/24 12:38 Blood/Venous Blood Culture - Preliminary
No Growth in 24 hours- Final report to follow
10/14/24 12:33 Blood/Venous Blood Culture - Preliminary
No Growth in 24 hours- Final report to follow
R elbow Xray: No acute osseous abnormality. There is an olecranon spur with associated olecranon bursitis. There is mild soft tissue swelling along the posterior soft tissues adjacent to the distal humerus.
Right elbow infected open wound with surrounding cellulitis:
-s/p IV Vanco/Zosyn and now on cefazolin. Switched to rocephin now
-Open wound cultures taken on admission with Streptococcus
-follow BCxs. Await Cultures from OR. Of note patient was on antibiotics prior to going to the OR. Preliminary cultures from the OR negative so far.
-s/p I&D Right Olecranon Bursa 10/16/[address] Douglas.
-Encourage range of motion of the wrist and hand. Ice and elevation which patient has been doing.
-ID following
Atrial flutter s/p ablation:
-Xarelto restarted. cleared by Dr. Douglas.
-Continue Coreg
Essential hypertension
-Continue amlodipine and carvedilol.
History of CVA
-Continue statin
-Xarelto on hold for possible I&D
Obesity due to excess calories
Tobacco abuse disorder
FULL/xarelto
Anticipated Discharge: > 48 hours
Subjective/Interval History
-
Date of Service: October 18, 2024
states keep doing R hand exercise and improvement in swelling
Objective Data
-
Labs:
Laboratory Results
10/18/24
04:27
WBC 9.1
Hgb 12.6 L
Hct 37.3 L
Plt Count 206
Sodium 135
Potassium 4.1
Chloride 98
Carbon Dioxide 32 H
BUN 15
Creatinine 0.7
Glucose 124 H
Calcium 8.7
Vital Signs:
Vital Signs
Temp Pulse Resp BP Pulse Ox
98.3 F 68 18 159/107 97
10/18/24 07:00 10/18/24 07:00 10/18/24 07:00 10/18/24 07:00 10/18/24 07:00
I&O
10/17/24 10/18/24 10/19/24
06:59 06:59 06:59
Intake Total 1140 / 1140
Balance 1140 / 1140
[2024-10-18 15:00] VITALS: BP 139/73
--- NOTE | 2024-10-18 15:05 | W.PN.ID1 ---
Date of Service
Date of Service: October 18, 2024
Today's Communication
- Continue ceftriaxone.
- Tomorrow can transition to amoxicillin 1g po q8h through 10/30/24
Assessment / Plan
# Right olecranon septic bursitis
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
- wound swab + Group A strep
- 10/16 s/p OR I+D. Cx neg to date.
- Continue ceftriaxone.
- Tomorrow can transition to amoxicillin 1g po q8h through 10/30/24
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
Hypertension
CVA
A-flutter status post ablation
Remote hx of gout
Chief Complaint
-: Other (septic bursitis)
Subjective / Review of Systems
Elbow feels better.
Vital Signs / Physical Exam
Vital Signs
Vital Signs
Temp Pulse Resp BP Pulse Ox
98.3 F 68 18 159/107 97
10/18/24 07:00 10/18/24 07:00 10/18/24 07:00 10/18/24 07:00 10/18/24 07:00
Physical Exam
Constitutional: No Acute Distress and Comfortable
Cardiovascular: Regular Rate and S1/S2
Pulmonary: Clear
Gastrointestinal: Soft, Non Tender and Non Distended
Objective Data
Lab Data
Lab Results
10/18/24 04:27
10/18/24 04:27
ESR 41 mm/hour (0-20) H 10/14/24 10:15
Estimated Creat Clear > 125 ml/min 10/18/24 04:27
Total Bilirubin 0.8 mg/dl (0.2-1.3) 10/15/24 04:17
AST 31 U/L (17-59) 10/15/24 04:17
ALT 26 U/L (0-50) 10/15/24 04:17
Alkaline Phosphatase 89 U/L (38-126) 10/15/24 04:17
C-Reactive Protein 61.40 mg/L (0.0-10.00) H 10/14/24 10:15
Most recent labs reviewed.
Micro Results:
10/14/24 12:38 Blood Culture - Preliminary
Blood/Venous No Growth in 4 days- Final report to follow
10/14/24 12:33 Blood Culture - Preliminary
Blood/Venous No Growth in 4 days- Final report to follow
10/16/24 19:12 Anaerobic Culture - Preliminary
Bursa Culture pending. Anaerobic cultures are examined after 3
days incubation. Additional information to follow.
10/16/24 19:12 Tissue Culture - Preliminary
Bursa No Growth After 48 Hours
Gram Stain - Preliminary
10/14/24 20:47 Wound Culture - Preliminary
Elbow - Right Streptococcus pyogenes
Gram Stain - Preliminary
10/14/24 Elbow XRAY: No acute osseous abnormality. There is an olecranon spur with associated olecranon bursitis. There is mild soft tissue swelling along the posterior soft tissues adjacent to the distal humerus.
[2024-10-18 22:48] VITALS: BP 143/81
--- NOTE | 2024-10-19 07:49 | W.PN.ORTHO ---
Today's Communication / Plan
-
Sling with nonweightbearing right upper extremity
Ice with elevation to control swelling and pain
Antibiotics per ID
Follow-up next Wednesday in orthopedic office for wound check
Stable from orthopedic standpoint for discharge today
Assessment
.
Distal Motor Intact: Yes
Dressing:
Clean, dry and intact.
Plan
.
Surgery / Date: I&D Right Olecranon Bursa 10/16/2024 [place]
DVT Prophylaxis: Aspirin
Activity:
Out of bed.
PT/OT
Discharge Plan: Home
Subjective
.
.:
Patient resting comfortably. Ambulating without difficulty and tolerating sling.
Vital Signs and Labs
.
Vital Signs and Labs:
Temp Pulse Resp BP Pulse Ox
97.8 F 60 20 143/81 96
10/18/24 22:48 10/18/24 22:48 10/18/24 22:48 10/18/24 22:48 10/18/24 22:48
Physical Exam
-
Right elbow sling in place. Yves wrap in place without drainage. Passive motion about the elbow 0 to 90 degrees without pain. Minimal edema in the hand. Distal neurovascular was intact.
[2024-10-19 07:54] VITALS: BP 159/85
[2024-10-19 09:44] LABS: % Eosinophils 2.7 % (0-6); % Immature Granulocytes 0.4 % (0-0.5); % Lymphocytes 31.8 % (20.5-51.1); % Neutrophils 54.1 % (42.2-75.2); Absolute Basophils 0.1 10^3/uL (0-0.2); Absolute Eosinophils 0.2 10^3/uL (0-0.7); Absolute Lymphocytes 2.1 10^3/uL (1.2-3.4); Absolute Monocytes 0.7 10^3/uL (0.1-0.6); Absolute Neutrophils 3.6 10^3/uL (1.4-6.5); Hematocrit 40.5 % (39.0-52.0); Hemoglobin 13.3 g/dL (13.0-18.0); Mean Corp Hgb Conc. 32.8 g/dL (33.0-37.0); Mean Corpuscular Hgb 33.1 pg (27.0-31.0); Mean Corpuscular Volume 100.7 fL (80.0-94.0); Mean Platelet Volume 9.6 fL (7.4-10.4); Nucleated Red Blood Cells % 0 % (-); Platelet Count 241 10^3/uL (130-400); Red Blood Cell Count 4.02 10^6/uL (4.70-6.10); Red Cell Dist. Width 11.9 % (11.5-14.5); White Blood Cell Count 6.7 10^3/uL (4.8-10.8)
[2024-10-19] MEDS: COREG 25 MG PO (10:06)
[2024-10-19] MEDS: LIPITOR 40 MG PO (10:06)
[2024-10-19] MEDS: XARELTO 20 MG PO (10:06)
[2024-10-19] MEDS: NORVASC 5 MG PO (10:06)
[2024-10-19 10:16] LABS: Blood Urea Nitrogen 13 mg/dl (9-20); Calcium 9.2 mg/dl (8.4-10.2); Carbon Dioxide 31 mmol/L (22-30); Chloride 99 mmol/L (98-107); Estimated Creatinine Clearance > 125 ml/min; Glucose 97 mg/dl (70-99); Potassium 4.2 mmol/L (3.5-5.1); Sodium 138 mmol/L (135-145); eGFR > 60.00
--- NOTE | 2024-10-19 11:30 | W.PN.HOSP.TC ---
Today's Communication/Plan
-
po abx
dc home
Op ortho f/u
Assessment / Plan
Assessment / Plan
Gen: NAD, AAOx3.
Eyes: EOMI, PERRLA, no scleral icterus.
Neck: supple.
CV: RRR, +S1/S2, no m/r/g.
Resp: CTAB, no rales, wheezes, or rhonchi.
Abd: +BS, soft, NT, ND
Skin: No rashes. C/D/I dressing R elbow
Neuro: CN 2-12 intact, non-focal.
Psych: Normal mood and affect.
MSR-R hand swelling. R forearm swelling.
10/14/24 12:38 Blood/Venous Blood Culture - Preliminary
No Growth in 24 hours- Final report to follow
10/14/24 12:33 Blood/Venous Blood Culture - Preliminary
No Growth in 24 hours- Final report to follow
R elbow Xray: No acute osseous abnormality. There is an olecranon spur with associated olecranon bursitis. There is mild soft tissue swelling along the posterior soft tissues adjacent to the distal humerus.
Right olecranon septic bursitis
-s/p IV Vanco/Zosyn and now on cefazolin. Switched to rocephin now
-Open wound cultures taken on admission with Streptococcus
-follow BCxs-neg so far. Await Cultures from OR. Of note patient was on antibiotics prior to going to the OR. Preliminary cultures from the OR negative so far.
-s/p I&D Right Olecranon Bursa 10/16/[address] Douglas.
-Encourage range of motion of the wrist and hand. Ice and elevation which patient has been doing. Per ortho-no driving for now
-Switch rocpehin to po amoxicillin per ID.
-ID following
Atrial flutter s/p ablation:
-Xarelto restarted. cleared by Dr. Douglas.
-Continue Coreg
Essential hypertension
-Continue amlodipine and carvedilol.
History of CVA
-Continue statin
-Xarelto on hold for possible I&D
Obesity due to excess calories
Tobacco abuse disorder
FULL/xarelto
More than 30 minutes spent in discharge including
Final examination of the patient
Summarizing hospital stay
Instructions for continuing care to all relevant caregivers
Preparation of discharge records, prescriptions, and referral forms
Total time spent (in minutes): 55
Anticipated Discharge: Today
Subjective/Interval History
-
Date of Service: October 19, 2024
denies severe pain to elbow
Objective Data
-
Labs:
Laboratory Results
10/19/24
08:27
WBC 6.7
Hgb 13.3
Hct 40.5
Plt Count 241
Sodium 138
Potassium 4.2
Chloride 99
Carbon Dioxide 31 H
BUN 13
Creatinine 0.7
Glucose 97
Calcium 9.2
Vital Signs:
Vital Signs
Temp Pulse Resp BP Pulse Ox
98.2 F 45 20 159/85 96
10/19/24 07:54 10/19/24 07:54 10/19/24 07:54 10/19/24 07:54 10/19/24 07:54
I&O
10/18/24 10/19/24 10/20/24
06:59 06:59 06:59
Intake Total 1140 / 1140 1919
Balance 1140 / 1140 1919
--- NOTE | 2024-10-19 11:34 | W.DCSUMMARY ---
Discharge Summary
Discharge Data
Date of Admission: 10/14/24
Date of Discharge: 10/19/24
-
Pending Results: No
Hospital Course
64 male past medical history of atrial fibrillation post ablation, chronic coagulopathy with Xarelto, hypertension, history of stroke, obesity due to excess calories presenting to the hospital with right elbow wound. States of right elbow
increasing swelling and the wound opened up with white discharge followed by bleeding discharge. Came into the ER with a wound was swabbed and was started on broad-spectrum antibiotics. Orthopedic was consulted admission. Orthopedic evaluated
patient and took patient to the operating room where he underwent I&D of the right olecranon bursa. OR cultures were negative as patient was already on antibiotics. Wound cultures on admission with Streptococcus. Vanco and Zosyn was discontinued
transition to cefazolin. ID was following along. Antibiotics were broadened to ceftriaxone. Patient wound continued to heal. Patient was restarted on Xarelto. Per infectious disease recommendation plan will be to transition patient off
ceftriaxone to p.o. amoxicillin. Orthopedic recommended sling with nonweightbearing right upper extremity and ice with elevation to control swelling and pain. Patient follow-up with orthopedic early next week for wound follow-up.
Discharge Plan
-
Patient Disposition: Home (Routine Discharge)
Discharge Diagnosis/Procedures: Right olecranon septic bursitis s/p I&D Right Olecranon Bursa 10/16/[address] Douglas.
Condition: Fair
Diet: Low Cholesterol
Activity: With assistance and As tolerated
Driving Restrictions: Not until seen by your Dr
Activity Restrictions/Additional Instructions:
R elbow as per orthopedic surgeon's instructions.
Sling with nonweightbearing right upper extremity
Ice with elevation to control swelling and pain
Follow up with orthopedic surgeon.
Referrals:
NONE,* [Family Provider] -
John Douglas MD [Active] - 10/23/24 (CALL OFFICE TO CONFIRM APPT AND TIME)
Prescriptions:
New
amoxicillin 500 mg capsule
1,000 mg PO Q8H 12 Days Qty: 72 0RF
Continued
carvedilol [Coreg] 25 MG tablet
25 mg PO BID 30 Days Qty: 60 0RF
amlodipine 5 mg tablet
5 mg PO DAILY Qty: 90 0RF
atorvastatin 40 MG tablet
40 mg PO DAILY
Xarelto 20 MG tablet
20 mg PO DAILY
Discharge Orders:
Discharge Patient (As Directed); Ordered 10/19/24
Ordered By: Jarrett Samuel
Discharge Date and Time
Discharge Date/Time: 10/19/24 13:28
Print Language: OCCITAN
--- NOTE | 2024-10-19 11:49 | CM ---
restaurant floor manager reviewed patient's chart and met with patient and patient to return to home no needs when stable, patient will not require wound vac and ABX have switched to PO.
Plan; Home today no needs.
[2024-10-19] MEDS: ROCEPHIN 2000 MG IV (12:27)
[2024-10-19] MEDS: STERILE WATER FOR INJECTION 20 ML IV (12:27)
--- NOTE | 2024-10-19 12:37 | W.PN.ID1 ---
Date of Service
Date of Service: October 19, 2024
Today's Communication
can transition to amoxicillin 1g po q8h through 10/30/24
Assessment / Plan
# Right olecranon septic bursitis
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
- wound swab + Group A strep
- 10/16 s/p OR I+D. Cx neg
- dc ceftriaxone.
- can transition to amoxicillin 1g po q8h through 10/30/24
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
Hypertension
CVA
A-flutter status post ablation
Remote hx of gout
Chief Complaint
-: Other (septic bursitis)
Subjective / Review of Systems
Feels well
Vital Signs / Physical Exam
Vital Signs
Vital Signs
Temp Pulse Resp BP Pulse Ox
98.2 F 45 20 159/85 96
10/19/24 07:54 10/19/24 07:54 10/19/24 07:54 10/19/24 07:54 10/19/24 07:54
Physical Exam
Constitutional: No Acute Distress and Comfortable
Cardiovascular: Regular Rate and S1/S2
Pulmonary: Clear
Gastrointestinal: Soft, Non Tender and Non Distended
Wound: Other (right elbow dressing dry)
Objective Data
Lab Data
Lab Results
10/19/24 08:27
10/19/24 08:27
ESR 41 mm/hour (0-20) H 10/14/24 10:15
Estimated Creat Clear > 125 ml/min 10/19/24 08:27
Total Bilirubin 0.8 mg/dl (0.2-1.3) 10/15/24 04:17
AST 31 U/L (17-59) 10/15/24 04:17
ALT 26 U/L (0-50) 10/15/24 04:17
Alkaline Phosphatase 89 U/L (38-126) 10/15/24 04:17
C-Reactive Protein 61.40 mg/L (0.0-10.00) H 10/14/24 10:15
Most recent labs reviewed.
Micro Results:
10/16/24 19:12 Anaerobic Culture - Preliminary
Bursa Culture pending. Anaerobic cultures are examined after 3
days incubation. Additional information to follow.
10/16/24 19:12 Tissue Culture - Preliminary
Bursa No Growth After 72 Hours
Gram Stain - Preliminary
10/14/24 12:38 Blood Culture - Preliminary
Blood/Venous No Growth in 4 days- Final report to follow
10/14/24 12:33 Blood Culture - Preliminary
Blood/Venous No Growth in 4 days- Final report to follow
10/14/24 20:47 Wound Culture - Preliminary
Elbow - Right Streptococcus pyogenes
Gram Stain - Preliminary
10/14/24 Elbow XRAY: No acute osseous abnormality. There is an olecranon spur with associated olecranon bursitis. There is mild soft tissue swelling along the posterior soft tissues adjacent to the distal humerus.
== END 2024-10-19 13:28 | disposition home or self-care (01) | DRG 501 ==
LOC: 4 WEST ACU 13:12
PROVIDERS: Emergency Medicine; Orthopaedic Surgery Hand Surgery; ADMITTING PHYSICIAN Hospitalist; ATTENDING PHYSICIAN Hospitalist; CONSULT PHYSICIAN Internal Medicine Infectious Disease; EMERGENCY PHYSICIAN Emergency Medicine; OTHER PHYSICIAN Physician Assistant Surgical
PROC: 0PBK0ZZ Excision of Right Ulna, Open Approach (ICD-10-PCS; 2024-10-16)
PROC: 0MB30ZZ Excision of Right Elbow Bursa and Ligament, Open Approach (ICD-10-PCS; 2024-10-16)
DX: M71.121 Other infective bursitis, right elbow (principal); I48.92 Unspecified atrial flutter; L03.818 Cellulitis of other sites; M1A.421 Other secondary chronic gout, right elbow; I10 Essential (primary) hypertension; Z86.73 Personal history of transient ischemic attack (TIA), and cerebral infarction without residual deficits; E66.09 Other obesity due to excess calories; Z68.34 Body mass index [BMI] 34.0-34.9, adult; F17.210 Nicotine dependence, cigarettes, uncomplicated; Z79.01 Long term (current) use of anticoagulants; Z88.8 Allergy status to other drugs, medicaments and biological substances; E78.5 Hyperlipidemia, unspecified; I48.91 Unspecified atrial fibrillation
CPT/HCPCS: 73080; 80048; 80053; 84550; 85025; 85652; 86140; 87040; 87070; 87075; 87077; 87147; 87176; 87205; 96374; 96375; 99284

== ENCOUNTER 2025-03-08 11:28 | Day surgery (SDC) | payer OTHER, SELFPAY ==
--- NOTE | 2025-03-08 13:36 | ITS.CL.CARDI ---
Aquatics Instructor - Cardioversion
Cardioversion
Procedure Report:
Date of Procedure: Mar 08 2025
Procedure: Cardioversion
Indication: Symptomatic atrial fibrillation
Performing Physician: Fahad Gamble DO, FACC
Technique: The patient was brought to the holding area. Signed informed consent was obtained. A time out was called and performed. The patient was anesthetized by the anesthesia service. Anticoagulation status was reviewed and appropriate. R2 pads
were placed anteriorly and posteriorly. A 250 J synchronized biphasic shock restored normal sinus rhythm without significant bradycardia. There were no complications.
Conclusion: Uncomplicated cardioversion from atrial fibrillation to sinus rhythm.
Recommendation: Routine post cardioversion care. 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
== END 2025-03-08 14:00 | disposition home or self-care (01) ==
LOC: CATH 11:28
PROVIDERS: ATTENDING PHYSICIAN Internal Medicine Cardiovascular Disease; OTHER PHYSICIAN Internal Medicine Cardiovascular Disease
DX: I48.0 Paroxysmal atrial fibrillation (principal); I48.3 Typical atrial flutter; I11.0 Hypertensive heart disease with heart failure; I50.20 Unspecified systolic (congestive) heart failure; Z72.0 Tobacco use; Z79.01 Long term (current) use of anticoagulants
CPT/HCPCS: 92960; 93005

== ENCOUNTER 2025-06-01 08:18 | Day surgery (SDC) | payer OTHER, SELFPAY ==
[2025-05-18 09:59] VITALS: BMI 37.5
[2025-05-18 10:22] LABS: Hematocrit 44.9 % (39.0-52.0); Hemoglobin 15.2 g/dL (13.0-18.0); Mean Corp Hgb Conc. 33.9 g/dL (33.0-37.0); Mean Corpuscular Volume 97.4 fL (80.0-94.0); Nucleated Red Blood Cells % 0 % (-); Platelet Count 161 10^3/uL (130-400); Red Cell Dist. Width 12.4 % (11.5-14.5)
[2025-05-18 10:40] LABS: INR 2.32; PT 25.5 Sec (11.4-14.6)
[2025-05-18 10:55] LABS: ALT (SGPT) 21 U/L (0-50); AST (SGOT) 24 U/L (17-59); Albumin 4.3 g/dl (3.5-5.0); Alkaline Phosphatase 88 U/L (38-126); Blood Urea Nitrogen 17 mg/dl (9-20); Calcium 9.2 mg/dl (8.4-10.2); Carbon Dioxide 26 mmol/L (22-30); Chloride 106 mmol/L (98-107); Estimated Creatinine Clearance 122 ml/min; Glucose 99 mg/dl (70-99); Magnesium 2.0 mg/dl (1.6-2.3); Potassium 4.5 mmol/L (3.5-5.1); Sodium 139 mmol/L (135-145); Total Protein 7.6 g/dl (6.3-8.2); eGFR > 60.00
[2025-06-01] VITALS (18 sets, daily range): BP systolic 107–152; BP diastolic 68–110
--- NOTE | 2025-06-01 11:09 | ITS.CL.ABL ---
[employer] - Ablation
Ablation
Procedure Report:
ELECTROPHYSIOLOGIC STUDY AND POSSIBLE ABLATION
DATE: June 01, 2025
INDICATION:
Symptomatic Atrial Fibrillation.
Persistent
HISTORY: See H and P.
Symptomatic AF, poorly controlled with attempted medical therapy.
He underwent atrial flutter ablation in July 2010 in the setting of symptomatic atrial flutter and dilated cardiomyopathy. He was then lost to follow-up until November 2020 when he developed symptomatic atrial arrhythmias and echocardiogram
demonstrated ejection fraction of 30 to 35%. Coronary angiography November 29, 2020 demonstrated no obstructive coronary disease. He underwent JANES and cardioversion December 02, 2020 at which point LVEF was 25 to 30%. Mapping in February 2021 found a
gap in the prior CTI line which was ablated resulting in bidirectional block. Programmed electrical stimulation then failed to induce any arrhythmias.
Echocardiogram from February 09, 2025 demonstrated recovery of left ventricular systolic function with ejection fraction 55 to 60%.
He subsequently has developed atrial fibrillation which has been persistent and symptomatic. LVEF has fallen again and he has HFrEF.
HAS-BLED: 3
Uncontrolled HTN
H/O Stroke, hemorrhagic acute infarction involving the left basal ganglia in the setting of hypertensive emergency.
Alcohol use
CHADSVASc: 4
HFrecEF
HTN
h/o Stroke, hemorrhagic acute infarction involving the left basal ganglia in the setting of hypertensive emergency.
PRESENTING RHYTHM: AF
HISTORY: See H and P.
Symptomatic AF, poorly controlled with attempted medical therapy.
ANTICOAGULATION: Rivaroxaban 20 mg daily
'TIME-OUT': called and confirmed.
SEDATION/ANESTHESIA: provided via the anesthesia department using general anesthesia.
PROCEDURE:
Ultrasound Guidance with real-time visualization of needle insertion and vessel patency performed by me for femoral venous Vascular Access.
Under real-time US guidance, the needle was advanced with negative pressure into the vein. The needle was seen entering the vessel lumen with a good return of dark red flow, the syringe was removed, non-pulsatile, dark red blood low was noted and
the wire was passed without difficulty, then the needle was removed. US confirmed the wire was in the vein, not going into an artery,
Images were taken and saved for the patient's permanent record. Imaging findings typical femoral venous anatomy. Direct visualization of needle puncture into the femoral vein was observed and recorded.
A decapolar CS catheter was placed within the CS for mapping and pacing.
The intracardiac ultrasound catheter was positioned in the RA for continuous intracardiac ultrasound imaging.
Heparin bolus and infusion to target ACT at 300 -350 seconds was administered. Transseptal puncture was performed. This entailed advancing a sheath with dilator into the superior vena cava and withdrawing both (monitoring intracardiac ultrasound,
fluoroscopy and tip pressure) with the tip oriented toward the atrial septum. The fossa ovalis was engaged (indicated by sudden displacement of the sheath tip as well as tenting of the fossa seen on intracardiac ultrasound).
The [employer] transseptal system was used. Left atrial catheter position was confirmed by echocardiographic imaging and fluoroscopy followed by RF delivery using the [employer] system resulting in successful LA access with pressure monitoring
demonstrating LA pressure waveforms (LA mean pressure 16 mm Hg). The sheath was advanced over the dilator and positioned in the left atrium.
The [employer] Grid multipolar mapping catheter was initially positioned through the transseptal sheath for high density mapping.
Cardioversion was attempted. 200 J failed to restore sinus rhythm. 360 J restored sinus rhythm very briefly but within 30 seconds atrial fibrillation recurred.
Geometry and voltage mapping was performed using the [employer] multipolar grid catheter. Ensite-X was utilized for three-dimensional electroanatomical mapping.
A 3-D map was created using Ens[employer] in Voxel mode. A 3-D reconstructed CT image was compared to the 3-D [employer] map to assist in anatomic evaluation, mapping and ablation.
The [employer] PFA catheter and system was used for cardiac ablation. Catheter positioning was guided and confirmed using both I.C.E. and fluoroscopy.
Ablation strategy included PVI as well as mapping for extra PV contributors to atrial fibrillation which would also be targeted if present.
High density electroanatomical three-dimensional mapping demonstrated four PVs: LSPV, LIPV, RSPV, RIPV.
After accomplishing pulmonary venous isolation, mapping identified additional areas likely to be extra PV contributors to atrial fibrillation. These areas demonstrated patchy low voltage as well as complex fractionated electrograms. These areas can
be sites for the formation of rotors which can drive and maintain atrial fibrillation. These areas are known to be significant contributors to initiation and perpetuation of atrial fibrillation.
Additional energy applications/additional ablation sets targeted extra PV contributors to atrial fibrillation.
Targets for additional PFA ablation included:
LA posterior wall targeted with pulsed electric field energy isolating the posterior wall of the left atrium
After ablation of the posterior wall, additional targets were addressed:
LA inferior floor
These areas were ablated using pulsed electric field energy eliminating the extra PV contributors to atrial fibrillation.
Post ablation mapping finds entrance and exit block at each of the pulmonary veins (LSPV, LIPV, RSPV, RIPV), the LA posterior wall and at the additional line the Inferior/floor of the LA.
Mapping did find extra PV contributors to atrial fibrillation remained at the anterior left atrial roof from the antrum of the right superior vein across to the antrum of the left superior pulmonary vein
Additional extra PV target was then ablated eliminating it as a contributor to atrial fibrillation:
Anterior LA roof line
Programmed electrostimulation including burst atrial pacing as well the delivery of decremental extrastimuli down to atrial effective refractory period and no sustained arrhythmias could be induced.
The mapping catheter was then withdrawn to the right atrium. Pacing the lateral right atrial wall high density electroanatomical activation map was obtained of the cavotricuspid isthmus demonstrating electrical block across the CTI from his prior
ablation.
I.C.E. :
Pre-Ablation Post-Ablation
LVEF: 20 % 20 %
WMA: global global
Pericardial effusion: trace post trace post
LA Pressure (mmHg) 16 13
COMPLICATIONS:
None
SUMMARY:
- Mapping and ablation to isolate the PVs resulting in electrical isolation of the pulmonary veins
- Additional AF ablation sets X 3 after PVI (LA posterior wall, Inf/floor of the LA posterior wall, Anterior LA roof line) resulting in elimination of the targeted extra PV contributors to atrial fibrillation.
- Mapping finds electrical block at the CTI from his prior ablation
- 3-D Electroanatomical Mapping
- Intracardiac Ultrasound
- Ultrasound guidance for vascular access
RECOMMENDATIONS:
- Observe in monitored bed.
- Maintain oral anticoagulation.
-Guideline directed medical therapy for heart failure with reduced ejection fraction
Continue carvedilol
He has anaphylactic reaction to THELMA inhibitor
Add spironolactone 12.5 mg daily
Add Farxiga 10 mg daily
Check basic metabolic profile next week
Continue to recommend abstinence from alcohol
Encourage CPAP therapy for obstructive sleep apnea
- Office visit with Iris Smith on September 27, 2025
[2025-06-01 12:10] LABS: ACT-LR - POC 345 Seconds (116-155)
[2025-06-01 12:31] LABS: ACT-LR - POC 360 Seconds (116-155)
[2025-06-01 12:50] LABS: ACT-LR - POC 350 Seconds (116-155)
--- NOTE | 2025-06-01 15:29 | W.PN.UPDATE ---
Update Note
Progress Note Update
Pt seen post PFA. Right groin site without ht/bleeding, non tender. Post EKG SB 50s, no acute changes. Resume xarelto tonight at usual time, continue carvedilol as before. New start spironolactone and farxiga- [place] check done and $0/month. He will
start these in the morning. BMP, Magnesium in 1 week. Followup as scheduled at [facility]. Home later today if groin site/tele remain stable.
--- NOTE | 2025-06-01 17:56 | PTCARENOTE ---
Patient ambulated hallway without bleeding. No hematoma noted. Patient felt comfortable for discharge.VSS
== END 2025-06-01 18:08 | disposition home or self-care (01) ==
LOC: CATH 08:18
PROVIDERS: ATTENDING PHYSICIAN Internal Medicine Cardiovascular Disease
DX: I48.91 Unspecified atrial fibrillation (principal); I48.92 Unspecified atrial flutter; I27.20 Pulmonary hypertension, unspecified; I25.10 Atherosclerotic heart disease of native coronary artery without angina pectoris; Z86.73 Personal history of transient ischemic attack (TIA), and cerebral infarction without residual deficits; E78.5 Hyperlipidemia, unspecified; E66.01 Morbid (severe) obesity due to excess calories; Z68.37 Body mass index [BMI] 37.0-37.9, adult; Z79.899 Other long term (current) drug therapy; Z79.01 Long term (current) use of anticoagulants; F17.210 Nicotine dependence, cigarettes, uncomplicated; Z88.8 Allergy status to other drugs, medicaments and biological substances; I11.0 Hypertensive heart disease with heart failure; I42.0 Dilated cardiomyopathy
CPT/HCPCS: C1892; C1730; C1769; C1894; C1732; 36415; 75572; 80053; 83735; 85025; 85347; 85610; 86850; 86900; 86901; 93005; 93656; 93657; C1733; C1766; Q9967